=== PATIENT | male | born 1985 | race Caucasian/White ===

== ENCOUNTER 2025-01-06 20:49 | Emergency (ER) | payer OTHER ==
[~2025-01-06] VITALS: Ht 172.7 cm; Wt 104.5 kg
[2025-01-06 21:03] VITALS: BP 141/96; PULSE 74; RESP 16; O2SAT 100
--- NOTE | 2025-01-06 22:16 | Physician Documentation ---
History of Present Illness ~ Chief Complaint: Laceration Stated Complaint: TOE LAC Time Seen by MD: 22:04 HPI Patient presents to the emergency room with the bottom of his left great toe laceration. He was out at the [place] trying to park a house boat when he stepped down cut in his foot on a rock. No other injuries. No numbness and movements intact. Tetanus Within 5 Years: No Medication Reconciliation Allergies: Coded Allergies: No Known Allergies (Unverified , 01/06/25) Review of Systems ROS All review of systems negative except as per HPI Physical Exam Vital Signs: Temperature: 97.8, Source: Temporal, Heart Rate: 74, Respiratory Rate: 16, BP: 141/96, Pulse Oximetry: 100, Weight: 104.550 Oxygen Flow Rate: 0 Physical Exam General: Patient is awake, alert, oriented x4 in no acute distress and well appearing.~ Head: Normocephalic and atraumatic. Eyes: Conjunctival normal. EOMI. PERRL. ENT: Mucous membranes moist. Neck: Supple, trachea is midline. Chest: Clear to auscultation bilaterally without rales, rhonchi, or wheezes. There is no accessory muscle use or retractions. Cardiac: RRR without murmurs, gallops, or rubs. Extremities: 3 cm full-thickness laceration to the proximal aspect of the plantar part of patient's left great toe with no active bleeding. Flexion and extension intact. Less than 2nd capillary refill Procedures Procedure Note Laceration repair: Status post informed verbal consent patient's wound was thoroughly irrigated and cleaned. Patient has anesthetize is with 1% lidocaine without epinephrine to a total of 2 cc. 6 simple interrupted sutures placed to approximate wound edges using 4-0 Ethilon. Patient tolerated procedure well without complication. Total time of procedure 10 minutes Progress Results/Orders Results/Orders Vital Signs 01/06/25 21:03 Temp 97.8 Pulse 74 Resp 16 B/P (MAP) 141/96 Pulse Ox 100 O2 Flow Rate 0 Medical Decision Making Findings Patient presented to the emergency room for evaluation of laceration to his great toe as per HPI. Differentials include but are not limited to laceration, tendinous rupture, vascular injury, soft tissue injury. Physical exam is reassuring and he had not feel patient requires labs or imaging. Patient's wound thoroughly irrigated tetanus made to be up-to-date and laceration repair performed. The need to have sutures removed as well as wound care discussed and ER precautions regarding symptoms of infection. Departure Disposition: 01 HOME / SELF CARE / HOMELESS Impression: Primary Impression: Laceration Condition: Stable Discharge Instructions: Laceration Care, Adult, [id number] Additional Instructions: Remove sutures in 7-10 days. Wear hard soled shoes. Referrals: NO PRIMARY CARE PROVIDER (PCP) Signature Scribe Signature: No scribe Attestation: The note accurately reflects work and decisions made by me.Fausto Cummins MD 01/06/25 22:15 FAUSTO CUMMINS MD Jan 06, 2025 22:16
[2025-01-06 23:44] VITALS: TEMP 97.8
== END 2025-01-06 23:45 | disposition home or self-care (01) ==
LOC: ER 20:50
DX: S91.112A Laceration without foreign body of left great toe without damage to nail, initial encounter (principal); W26.8XXA Contact with other sharp object(s), not elsewhere classified, initial encounter; Y93.89 Activity, other specified; Y92.89 Other specified places as the place of occurrence of the external cause; Y99.8 Other external cause status
CPT/HCPCS: 12002; 99282